=== PATIENT | female | born 1950 | race Caucasian/White ===

== ENCOUNTER → 2018-12-16 10:54 | Outpatient (CLI) | payer MEDICARE, OTHER, SELFPAY ==
--- NOTE | 2018-12-16 | DI.RAD.S_ITS ---
PROCEDURE: XR SHOULDER RT MIN 2V INDICATIONS: RIGHT SHOULDER PAIN TECHNIQUE: 3 views of the shoulder were acquired. COMPARISON: None. FINDINGS: Bones: No fractures or dislocations. No suspicious bony lesions. Visualized ribs appear intact. Soft tissues: No suspicious soft tissue calcifications. 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 Postsurgical clips suggest prior lymph node excision or lumpectomy in this nearby right breast area. Dictated by: Waldemar Spears M.D. on 12/16/2018 at 12:47 Approved by: Waldemar Spears M.D. on 12/16/2018 at 12:48
== END ==
PROVIDERS: PCP Nurse Practitioner Family; Visit Provider Nurse Practitioner Family
DX: M25.511 Pain in right shoulder (principal); M19.011 Primary osteoarthritis, right shoulder
CPT/HCPCS: 73030

== ENCOUNTER → 2021-03-28 17:08 | Outpatient (CLI) | payer MEDICARE, OTHER, SELFPAY ==
--- NOTE | 2021-03-28 | DI.RAD.S_ITS ---
PROCEDURE: XR KUB INDICATIONS: Polyuria and Right Flank Pain TECHNIQUE: One view of the abdomen acquired. COMPARISON: None. FINDINGS: Surgical changes and devices: None. Bowel: Bowel gas pattern is nonobstructive. Moderate fecal stasis in the colon is seen. Soft tissues: No suspicious abdominal calcifications. Visualized solid organ contours appear normal in size. Bones: No suspicious bony lesions. IMPRESSION: No gross renal calcification is seen. Moderate constipation. No bowel obstruction or gross free air. Dictated by: Fabián Rahman M.D. on 03/28/2021 at 18:02 Approved by: Fabián Rahman M.D. on 03/28/2021 at 18:02
== END ==
PROVIDERS: PCP Student in an Organized Health Care Education/Training Program; Referring Provider Student in an Organized Health Care Education/Training Program; Visit Provider Student in an Organized Health Care Education/Training Program
DX: R35.0 Frequency of micturition (principal); R10.9 Unspecified abdominal pain; K59.00 Constipation, unspecified
CPT/HCPCS: 74018

== ENCOUNTER 2023-09-09 12:25 | Emergency (ER) | payer MEDICARE, OTHER, SELFPAY ==
[2023-09-09 12:29] VITALS: BP 163/74; PULSE 90; RESP 18; TEMP 37.4; O2SAT 99; BMI 18.5
--- NOTE | 2023-09-09 12:35 | DI.RAD.S_ITS ---
PROCEDURE: XR CHEST 1V INDICATIONS: chest pain TECHNIQUE: One view of the chest was acquired. COMPARISON: None. FINDINGS: Surgical changes and devices: Surgical clips in the right axilla. Lungs and pleura: Lungs are clear. No pleural effusions or pneumothorax. Mediastinum: Mediastinal contours appear normal. Heart size is normal. Bones and chest wall: No suspicious bony lesions. Overlying soft tissues appear unremarkable. IMPRESSION: No acute cardiopulmonary abnormality is seen. Dictated by: Irina Koroma M.D. on 09/09/2023 at 13:33 Approved by: Irina Koroma M.D. on 09/09/2023 at 13:33
[2023-09-09 12:58] LABS: Add Manual Diff / Slide Review NO; Basophils Absolute Auto 0 /uL (0-100); Basophils Percent Auto 0.8 % (0-2); Eosinophils Absolute Auto 100 /uL (0-450); Eosinophils Percent Auto 0.9 % (2-4); Hemoglobin 14.8 g/dL (12.0-16.0); Lymphocytes Absolute Auto 1500 /uL (1100-4500); Lymphocytes Percent Auto 22.9 % (25-40); Mean Corpuscular HGB Conc 34.3 % (30-36); Mean Corpuscular Volume 90.5 fL (80-100); Monocytes Absolute Auto 900 /uL (0-900); Monocytes Percent Auto 13.5 % (3-14); Neutrophils Absolute Auto 4000 /uL (1500-7000); Neutrophils Percent Auto 61.9 % (50-75); Platelet Count 366 X10^3/uL (150-400); Red Blood Cell Count 4.76 X10^6/uL (4.0-5.2); Red Cell Distribution Width 12.9 % (11.6-14.8); White Blood Cell Count 6.4 X10^3/uL (4.5-11.0)
[2023-09-09 13:04] LABS: INR 1.1 (0.9-1.3); Prothrombin Time 12.2 SECONDS (9.4-12.5)
[2023-09-09 13:06] LABS: PTT Partial Thromboplastin Tim 33 SECONDS (25.1-36.5)
[2023-09-09 13:10] LABS: Alanine Aminotransferase 22 IU/L (<35); Albumin 4.9 g/dL (3.5-5.0); Albumin Globulin Ratio 1.2 (1.0-2.8); Alkaline Phosphatase 63 U/L (38-126); Aspartate Aminotransferase 38 IU/L (14-36); BUN Creatinine Ratio 25.9 (6-22); Bilirubin Total 0.8 mg/dL (0.2-1.3); Blood Urea Nitrogen 14 mg/dL (7-17); Calcium 10.9 mg/dL (8.4-10.2); Carbon Dioxide 33 mmol/L (22-32); Chloride 94 mmol/L (98-107); Creatine Kinase 40 U/L (30-135); Estimated Glomerular Filt Rate > 60 mL/min (>60); Globulin 4.2 g/dL (1.7-4.1); Glucose 103 mg/dL (80-110); HEMOLYSIS < 15 (0-50); Lipase 84 U/L (23-300); Potassium 4.1 mmol/L (3.4-5.1); Sodium 135 mmol/L (137-145); Total Protein 9.1 g/dL (6.3-8.2)
[2023-09-09 13:21] LABS: Troponin I < 0.012 ng/mL (0.01-0.034)
[2023-09-09 14:41] VITALS: BP 139/64; PULSE 88; O2SAT 99
--- NOTE | 2023-09-09 15:32 | ED.CHESTPAIN ---
HPI - Chest Pain General Chief Complaint: Chest Pain Stated Complaint: chest pain on rt side/intermitten/lt shoulder ache Time Seen by Provider: 09/09/23 15:14 Source: patient Mode of arrival: Ambulatory Limitations: no limitations History of Present Illness HPI narrative: This is a 72-year-old female who is seen today for chest pain. Says that earlier today she had some ?twinges? of pain in her chest on the left side. This was not accompanied by shortness of breath diaphoresis nausea and it was not exertional. These twinges lasted for seconds only. Last week, she had some left posterior shoulder pain. That is no longer present. She has a family history of coronary disease in both parents but later in life. She herself has no history of diabetes hypertension or smoking, reports that her cholesterol has been ?borderline previously?. She is felt well otherwise. Related Data Allergies Allergy/AdvReac Type Severity Reaction Status Date / Time morphine AdvReac Verified 09/09/23 12:29 Patient History Social History Smoking Status: Never smoker Smoking Status: Never smoker alcohol intake frequency: holidays/special occasions only Substance Use Type: does not use Exam Initial Vital Signs Initial Vital Signs: Vital Signs Temperature 99.3 F 09/09/23 12:29 Pulse Rate 90 09/09/23 12:29 Respiratory Rate 18 09/09/23 12:29 Blood Pressure 163/74 H 09/09/23 12:29 Pulse Oximetry 99 09/09/23 12:29 Oxygen Delivery Method Room Air 09/09/23 12:29 Const Other: Thin female who appears to be in no distress HENHI Head: normocephalic and atraumatic Neck Neck: supple Resp Effort & Inspection: normal respiratory effort Auscultation: clear to auscultation bilaterally Cardio Other: Regular rhythm rate no murmur rub or gallop Neuro General: patient alert and patient oriented x3 Course Orders Ordered: ED Orders 09/09/23 12:35 XR chest 1V Stat EKG-12 Lead Stat 09/09/23 12:44 Complete Blood Count AUTO DIFF Stat Comprehensive Metabolic Panel Stat Lipase Stat Magnesium Stat PTT Partial Thromboplastin Mj Stat Prothrombin Time INR Stat Troponin & CK Cardiac Panel Stat Vital Signs Vital signs: Vital Signs - 8 hr 09/09/23 12:29 09/09/23 14:41 Temperature 99.3 F Pulse Rate 90 88 Respiratory Rate 18 Blood Pressure 163/74 H 139/64 Pulse Oximetry 99 99 Oxygen Delivery Method Room Air Room Air MDM - Chest Pain Lab Data Lab results narrative: CBC with diff and CMP are unremarkable, troponin is normal 09/09/23 12:44 09/09/23 12:44 Labs: Lab Results 09/09/23 Range/Units 12:44 WBC 6.4 (4.5-11.0) X10^3/uL RBC 4.76 (4.0-5.2) X10^6/uL Hgb 14.8 (12.0-16.0) g/dL Hct 43.0 (36-46) % MCV 90.5 (80-100) fL MCH 31.0 (26-34) PG MCHC 34.3 (30-36) % RDW 12.9 (11.6-14.8) % Plt Count 366 (150-400) X10^3/uL Neut % (Auto) 61.9 (50-75) % Lymph % (Auto) 22.9 L (25-40) % [place] % (Auto) 13.5 (3-14) % Eos % (Auto) 0.9 L (2-4) % Baso % (Auto) 0.8 (0-2) % Neut # (Auto) 4000 (5530-4342) /uL Lymph # (Auto) 1500 (4325-2698) /uL [place] # (Auto) 900 (0-900) /uL Eos # (Auto) 100 (0-450) /uL Baso # (Auto) 0 (0-100) /uL PT 12.2 (9.4-12.5) SECONDS INR 1.1 (0.9-1.3) APTT 33 (25.1-36.5) SECONDS Sodium 135 L (137-145) mmol/L Potassium 4.1 (3.4-5.1) mmol/L Chloride 94 L (98-107) mmol/L Carbon Dioxide 33 H (22-32) mmol/L BUN 14 (7-17) mg/dL Creatinine 0.54 (0.52-1.04) mg/dL Estimated GFR > 60 (>60) mL/min BUN/Creatinine Ratio 25.9 H (6-22) Glucose 103 (80-110) mg/dL Calcium 10.9 H (8.4-10.2) mg/dL Magnesium 2.0 (1.6-2.3) mg/dL Total Bilirubin 0.8 (0.2-1.3) mg/dL AST 38 H (14-36) IU/L ALT 22 (<35) IU/L Alkaline Phosphatase 63 (38-126) U/L Total Creatine Kinase 40 (30-135) U/L Troponin I < 0.012 (0.01-0.034) ng/mL Total Protein 9.1 H (6.3-8.2) g/dL Albumin 4.9 (3.5-5.0) g/dL Globulin 4.2 H (1.7-4.1) g/dL Albumin/Globulin Ratio 1.2 (1.0-2.8) Lipase 84 (23-300) U/L Imaging Data Chest x-ray: My Impression: Independently reviewed portable chest, no acute findings Radiologist's Impression: Reports no acute disease ECG Data Interpretation: Normal sinus rhythm without evidence of previous infarction rate is [address] segment changes biatrial injure enlargement MDM Narrative Medical decision making narrative: 72-year-old female with minimal to no risk factors presenting with a difficult chest pain, symptoms that are highly unlikely be cardiac. She is normotensive does not have ischemic EKG changes and has a normal troponin hours after her symptoms. Patient is to be discharged home I recommended primary care follow up. Discharge Plan Departure Patient Disposition: Home Clinical Impression: Atypical chest pain Instructions: DI for Atypical Chest Pain Activity Restrictions/Additional Instructions: Emergency department workup today is reassuring. No serious cause for your chest pain is identified. I think it is safe for you to go home, continue previous home medications and follow up with her primary care provider soon. If you are having increasing chest pain shortness of breath or other acute symptoms recheck in the emergency department. Referrals: Cara Gutierrez MD [Primary Care Provider] - Stand Alone Forms: Patient Portal/API
[2023-09-09 15:43] VITALS: BP 120/60; PULSE 79; RESP 18; O2SAT 98
== END 2023-09-09 15:45 | disposition home or self-care (01) ==
PROVIDERS: Emergency Provider Emergency Medicine; PCP Student in an Organized Health Care Education/Training Program
DX: R07.89 Other chest pain (principal)
CPT/HCPCS: 36415; 71045; 80053; 82550; 83690; 83735; 84484; 85025; 85610; 85730; 93005; 93010; 99283; 99284

== ENCOUNTER → 2025-06-03 14:08 | Outpatient (CLI) | payer MEDICARE, OTHER, SELFPAY ==
--- NOTE | 2025-06-03 14:13 | DI.RAD.S_ITS ---
PROCEDURE: XR CHEST 2V INDICATIONS: ACUTE BRONCHITIS TECHNIQUE: 2 views of the chest were acquired. COMPARISON: [facility], CR, XR CHEST 1V, 09/09/2023, 12:56. FINDINGS: Surgical changes and devices: None. Lungs and pleura: Lungs are clear. No pleural effusions or pneumothorax. Mediastinum: Mediastinal contours are normal. Heart size is normal. Bones and chest wall: No suspicious bony abnormalities. Soft tissues appear unremarkable. IMPRESSION: No acute cardiopulmonary abnormality is seen. Dictated by: Galo Baez M.D. on 06/03/2025 at 15:59 Approved by: Galo Baez M.D. on 06/03/2025 at 16:01
== END ==
PROVIDERS: PCP Registered Nurse; Referring Provider Registered Nurse; Visit Provider Registered Nurse
DX: J20.9 Acute bronchitis, unspecified (principal)
CPT/HCPCS: 71046